=== PATIENT | female | born 1995 | race Caucasian/White ===

== ENCOUNTER 2020-08-07 04:55 | Emergency (ER) | payer MEDICAID ==
[~2020-08-07] VITALS: Ht 154.9 cm; Wt 56.2 kg
--- NOTE | 2020-08-07 05:00 | NUR ---
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 PT ACTIVELY VOMITING UPON TRIAGE. PT AAOX4, RESPIRATIONS EVEN AND UNLABORED ON RA W/ NAD NOTED. PT CONNECTED TO THE ELECTRICAL INSTRUMENT TECHNICIAN AND POX
[2020-08-07] MEDS ORDERED: ONDANSETRON HCL/PF 4 MG/2 ML VIAL ONE ×2 (05:14→06:36)
[2020-08-07 05:26] LABS: BASOPHILS % (AUTO) 0.2 % (0.0-2.0); EOSINOPHILS % (AUTO) 0.1 % (0.0-6.0); HEMATOCRIT 43 % (33-45); HEMOGLOBIN 14.3 g/dL (11.5-14.8); LYMPHOCYTES # (AUTO) 0.8 /CMM (0.8-4.8); LYMPHOCYTES % (AUTO) 5.5 % (20.0-44.0); MEAN CORPUSCULAR HGB CONC 33 g/dl (31.0-36.0); MEAN CORPUSCULAR VOLUME 92 fL (82-100); MONOCYTES # (AUTO) 0.6 /CMM (0.1-1.30); MONOCYTES % (AUTO) 3.8 % (2.0-12.0); NEUTROPHILS # (AUTO) 13.2 /CMM (1.8-8.9); NEUTROPHILS % (AUTO) 90.4 % (43.0-81.0); PLATELET COUNT (AUTO) 263 /CMM (150-450); RED BLOOD CELL COUNT(AUTO) 4.64 MIL/uL (4.0-5.2); WHITE BLOOD COUNT (AUTO) 14.6 K/uL (4.3-11.0)
[2020-08-07 05:30] LABS: BILIRUBIN,URINE NEGATIVE (NEGATIVE); BLOOD, URINE MODERATE Ery/uL (NEGATIVE); COLOR,URINE YELLOW (YELLOW); LEUKOCYTE ESTERASE ,URINE NEGATIVE (NEGATIVE); NITRITE, URINE NEGATIVE (NEGATIVE); PROTEIN,URINE NEGATIVE (NEGATIVE); UGLUCOSE NEGATIVE (NEGATIVE); UROBILINOGEN,URINE 0.2 EU/dL (0.2)
[2020-08-07] MEDS ORDERED: ONDANSETRON HCL/PF 4 MG/2 ML VIAL IVP ONE (05:30)
[2020-08-07] MEDS ORDERED: IV NS 0.9% 1,000 ML BAG IV ONE (05:30)
[2020-08-07 05:35] LABS: CALCIUM, SERUM 9.1 mg/dL (8.5-10.1); CREATININE 0.9 mg/dL (0.6-1.3); POTASSIUM 3.6 mmol/L (3.5-5.1)
[2020-08-07 05:42] LABS: BACTERIA,URINE 1+ /HPF (None Seen); SQUAMOUS EPITHELIAL CELL,UR Many /HPF (None Seen); URINE AMORPHOUS URATE Few /HPF (None Seen)
--- NOTE | 2020-08-07 06:04 | NUR ---
Patient is resting comfortably in bed. Easily aroused. VSS.
[2020-08-07] MEDS ORDERED: CEFTRIAXONE 1GM BAG (ER ONLY) 50 ML IV ONE (06:29)
[2020-08-07] MEDS ORDERED: KETOROLAC TROMETHAMINE 15 MG/ML VIAL ONE (06:29)
[2020-08-07] MEDS ORDERED: KETOROLAC TROMETHAMINE INJ 30 MG/ML VIAL IV ONE (06:30)
[2020-08-07] MEDS ORDERED: CEFTRIAXONE 1GM BAG (ER ONLY) 1 GM/50 ML PIGGYBACK IV ONE (06:30)
[2020-08-07] MEDS ORDERED: IV NS 0.9% 250 ML IV ONE (06:32)
[2020-08-07] MEDS ORDERED: IOHEXOL-300 100 ML VIAL IV ONE (06:32)
[2020-08-07] MEDS ORDERED: CT SWABBABLE VALVE TRANS SET 1 EA INFUS.SET MC ONE (06:32)
--- NOTE | 2020-08-07 06:37 | NUR ---
PT BROUGHT TO CT
--- NOTE | 2020-08-07 06:51 | NUR ---
BROUGHT BACK FROM CT. PLACED ON MONITOR AND PULSE OX. VSS.
[2020-08-07] MEDS ORDERED: ONDANSETRON HCL/PF 4 MG/2 ML VIAL IV ONE (07:00)
--- NOTE | 2020-08-07 07:22 | NUR ---
US AT BEDSIDE
[2020-08-07 08:21] VITALS: BP 128/78
--- NOTE | 2020-08-07 08:21 | NUR ---
Patient discharged to home in stable condition. Written and verbal after care instructions given. Patient verbalizes understanding of instruction. IV removed. Catheter intact and site benign. Pressure and 4x4 applied to site. No bleeding noted.
== END 2020-08-07 08:22 | disposition home or self-care (01) ==
LOC: ER 04:55
DX: N39.0 Urinary tract infection, site not specified (principal); R11.2 Nausea with vomiting, unspecified
CPT/HCPCS: 36415; 74177; 76856; 80048; 81001; 84703; 85025; 87086; 96361; 96365; 96375; 96376; 99285; J0696; J1885; J2405 ×2; J7030; J7050; Q9967

== ENCOUNTER 2020-08-07 10:55 | Emergency (ER) | payer MEDICAID ==
[~2020-08-07] VITALS: Ht 154.9 cm; Wt 56.2 kg
[2020-08-07 11:00] VITALS: BP 102/65
[2020-08-07] MEDS ORDERED: IV NS 0.9% 1,000 ML BAG IV ONE (11:30)
[2020-08-07] MEDS ORDERED: ONDANSETRON HCL/PF 4 MG/2 ML VIAL IVP ONE (11:30)
[2020-08-07] MEDS ORDERED: MORPHINE SULFATE INJ 2 MG/ML DISP.SYRIN IV ONE (11:30)
--- NOTE | 2020-08-07 18:30 | NUR ---
Patient eloped from facility. ER MD notified.
== END 2020-08-07 18:30 | disposition left against medical advice (07) ==
LOC: ER 11:00
DX: R10.9 Unspecified abdominal pain (principal); R11.2 Nausea with vomiting, unspecified